=== PATIENT | male | born 1995 | race Two or more races ===

== ENCOUNTER 2020-03-02 01:45 | Emergency (ER) | payer BC, OTHER ==
[~2020-03-02] VITALS: Ht 180.3 cm; Wt 101.6 kg
[2020-03-02] MEDS ORDERED: ACETAMINOPHEN 500 MG TABLET ONE (02:02)
[2020-03-02] MEDS ORDERED: IBUPROFEN 200 MG TABLET ONE (02:02)
--- NOTE | 2020-03-02 02:24 | NUR ---
THIS IS A 24 YO MALE COMING IN FOR SOB/COUGH AND FEVER AT HOME FOR THE PAST DAY, PATIENT SPEAKING IN FULL SENTENCES, RESPIRATIONS EVEN AND UNLABORED. FLU AND COVID SWAB DONE IN TRIAGE. EKG DONE. LUNG SOUNDS DIMINISHED THROUGHOUT, PATIENT UNABLE TO TAKE FULL DEEP BREATHS WITHOUT COUGHING. ALL MONITORING IN PLACE, SINUS TACHYCARDIC ON MONITOR. PIV PLACED, PATIENT MEDICATED PER EMAR. CALL LIGHT IN REACH. LABS SENT.
[2020-03-02] MEDS ORDERED: IBUPROFEN 600 MG TABLET PO PRN (02:30)
[2020-03-02] MEDS ORDERED: SODIUM CHLORIDE 0.9% 1,000ML IVBOLUS ONE (02:30)
[2020-03-02] MEDS ORDERED: ACETAMINOPHEN 500 MG TABLET PO PRN (02:30)
[2020-03-02 02:35] LABS: BASOPHILS # (AUTO) 0.08 x10^3/uL (0-0.1); BASOPHILS % (AUTO) 1 % (0-1); EOSINOPHILS # (AUTO) 0.01 x10^3/uL (0-0.4); EOSINOPHILS % (AUTO) 0 % (1-7); LYMPHOCYTES # (AUTO) 1.13 x10^3/uL (1-3.4); LYMPHOCYTES % (AUTO) 10 % (22-44); MD NO; MEAN CORPUSCULAR HEMOGLOBIN 29.9 pg (27.5-34.5); MEAN CORPUSCULAR HGB CONC 33.6 g/dL (33.2-36.2); MEAN PLATELET VOLUME 7.5 fL (7.4-10.4); MONOCYTES # (AUTO) 1.07 x10^3/uL (0.2-0.8); MONOCYTES % (AUTO) 10 % (2-9); NEUTROPHILS # (AUTO) 8.88 x10^3/uL (1.8-6.8); NEUTROPHILS % (AUTO) 80 % (42-75); PLATELET COUNT 283 x10^3/uL (130-400); RED BLOOD COUNT 5.29 x10^6/uL (4.38-5.82)
[2020-03-02 02:41] LABS: ALANINE AMINOTRANSFERASE 66 U/L (12-78); ANION GAP 8 mmol/L (5-15); CALCIUM 8.8 mg/dL (8.5-10.1); CHLORIDE 107 mmol/L (98-107); CREATININE 1.16 mg/dL (0.7-1.3)
[2020-03-02 02:44] LABS: ALKALINE PHOSPHATASE 68 U/L (45-117); BILIRUBIN,TOTAL 0.3 mg/dL (0.2-1.0); TOTAL PROTEIN 8.2 g/dL (6.4-8.2)
[2020-03-02 02:49] LABS: RAPID INFLUENZA A Negative (Negative); RAPID INFLUENZA B Negative (Negative)
[2020-03-02 03:26] VITALS: BP 133/82
--- NOTE | 2020-03-02 03:27 | NUR ---
PATIENT RESTING, RESPIRATIONS EVEN AND UNLABORED. VSS, HR IN 90'S AT THIS TIME. XRAY RESULTS PENDING
--- NOTE | 2020-03-02 03:42 | NUR ---
Patient given discharge instructions and they have confirmed that they understand the instructions. Patient ambulatory with steady gait.
== END 2020-03-02 03:51 | disposition home or self-care (01) ==
LOC: ED 02:25
DX: Z03.818 Encounter for observation for suspected exposure to other biological agents ruled out (principal); J02.0 Streptococcal pharyngitis; R50.9 Fever, unspecified; R00.0 Tachycardia, unspecified; R06.02 Shortness of breath; F17.210 Nicotine dependence, cigarettes, uncomplicated
CPT/HCPCS: 36415; 71045; 80053; 84145; 85025; 87400; 87880; 93005; 99285; 99406; J7030